=== PATIENT | male | born 1965 | race Caucasian/White ===

== ENCOUNTER 2018-07-18 19:32 | Inpatient (IN) | payer OTHER ==
--- NOTE | 2018-07-18 20:59 | ED ---
General Adult HPI - General Chief complaint: Recheck/Abnormal Lab/Rx Stated complaint: Abnormal lab, low hemoglobin Time Seen by Provider: 07/18/18 20:57 Source: patient Mode of arrival: ambulatory Limitations: no limitations - History of Present Illness Initial comments: Landon is a 52-year-old male who comes to the ED today after visiting his primary care physician yesterday for evaluation of fatigue and his heart pounding when doing any physical activity. Patient reports he's noticed over the past couple of weeks he's become progressively more fatigued. When attempting to clean up believes in his front yard he reports that he on multiple occasions had to stand against a tree to support himself [place] on a trashcan while trying to catch his breath, this is very atypical for him as he usually has no problem tending to all of his yardwork. Patient decided to see his primary care physician yesterday who commented on how pale he appeared. This morning the patient and his blood drawn and was called by his primary care physician to being notified that his hemoglobin was only 5.4. Patient has no history of anemia in the past. He does report that he has intermittent bright red blood per rectum. He has been seen by surgery in the past and had internal and external hemorrhoid surgeries. Patient reports he hasn't had any GI bleeding in the past one week. He states that on times he has a bowel movement and has bright red bleeding and has to sit on the toilet for a number of minutes while he continues to just have active bleeding from his rectum. - Related Data Home Medications Medication Instructions Recorded Confirmed No Known Home Medications 07/18/18 07/18/18 Allergies Allergy/AdvReac Type Severity Reaction Status Date / Time cephalexin [From Keflex] AdvReac Rash/Hives Verified 07/18/18 21:00 Review of Systems ROS Statement: Those systems with pertinent positive or pertinent negative responses have been documented in the HPI. ROS Other: All systems not noted in ROS Statement are negative. Past Medical History Past Medical History: GI Bleed (Hemorrhoid) History of Any Multi-Drug Resistant Organisms: None Reported Past Surgical History: Orthopedic Surgery Additional Past Surgical History / Comment(s): bilat knees, left shoulder, acl to right knee, hemorrhoid surgery, Past Psychological History: No Psychological Hx Reported Smoking Status: Never smoker Past Alcohol Use History: Occasional Past Drug Use History: None Reported General Exam - General Exam Comments Initial Comments: GENERAL: Patient appears very pale Patient is nontoxic and well-hydrated and is in no distress. HENT: Normocephalic, Atraumatic. Neck is soft and supple. No significant lymphadenopathy is noted. Oropharynx is clear. Moist mucous membranes. Neck has full range of motion without eliciting any pain. EYES: The sclera were anicteric and conjunctiva were pale pink and moist. Extraocular movements were intact and pupils were equal round and reactive to light. Eyelids were unremarkable. PULMONARY: Unlabored respirations. Good breath sounds bilaterally. No audible rales rhonchi or wheezing was noted. CARDIOVASCULAR: There is a regular rate and rhythm without any murmurs gallops or rubs. ABDOMEN: Soft and nontender with normal bowel sounds. Rectal exam with no stool in the rectal vault Palpable internal and visible external hemorrhoids, no active bleeding SKIN: Skin is clear with no lesions or rashes and otherwise unremarkable. NEUROLOGIC: Patient is alert and oriented x3. Cranial nerves II through XII are grossly intact. Motor and sensory are also intact. Normal speech, volume and content. Symmetrical smile. MUSCULOSKELETAL: Normal extremities with adequate strength and full range of motion. No lower extremity swelling or edema. No calf tenderness. LYMPHATICS: No significant lymphadenopathy is noted PSYCHIATRIC: Normal psychiatric evaluation. Limitations: no limitations Limitations: no limitations Course Vital Signs 07/18/18 07/18/18 07/18/18 20:05 22:41 22:50 Temperature 98.2 F 98.4 F 98.3 F Pulse Rate 99 79 84 Respiratory 18 18 19 Rate Blood Pressure 155/88 138/87 131/83 O2 Sat by Pulse 100 100 Oximetry 07/18/18 23:00 Temperature 98.1 F Pulse Rate 85 Respiratory 18 Rate Blood Pressure 137/86 O2 Sat by Pulse Oximetry EKG Findings - EKG Comments: EKG Findings:: EKG was obtained at 8:15 AM, rate of 77, rhythm is sinus, there is normal axis, normal intervals, KS 146, QRS 96, QTC 441. There is no acute ST elevations or depressions noted some acute ischemia or infarction. Medical Decision Making - Medical Decision Making The patient was seen and evaluated history was obtained from the patient Physical exam reveals a very pale-appearing male in no acute distress rectal exam with no stool in the rectal vault, however there is palpable internal and external hemorrhoids patient reports no bleeding for one week Labs reveal acute anemia with a hemoglobin of only 6 Patient with no opposition to transfusion, transfusion was ordered Patient care was discussed with patient's primary care physician Dr. Benitez who accepts the admission with a consult to patient's surgeon Dr. Price for evaluation of hemorrhoidal bleeding admission orders were placed - Lab Data Result diagrams: 07/18/18 20:25 07/18/18 20:25 Lab Results 07/18/18 07/18/18 07/18/18 Range/Units 20:25 20:25 20:25 WBC 5.4 (3.8-10.6) k/uL RBC 2.52 L (4.30-5.90) m/uL Hgb 6.0 L* (13.0-17.5) gm/dL Hct 20.3 L (39.0-53.0) % MCV 80.7 (80.0-100.0) fL MCH 23.7 L (25.0-35.0) pg MCHC 29.4 L (31.0-37.0) g/dL RDW 17.4 H (11.5-15.5) % Plt Count 423 (150-450) k/uL Neutrophils % (Manual) 69 % Lymphocytes % (Manual) 21 % Monocytes % (Manual) 8 % Eosinophils % (Manual) 2 % Neutrophils # (Manual) 3.73 (1.3-7.7) k/uL Lymphocytes # (Manual) 1.13 (1.0-4.8) k/uL Monocytes # (Manual) 0.43 (0-1.0) k/uL Eosinophils # (Manual) 0.11 (0-0.7) k/uL Nucleated RBCs 0 (0-0) /100 WBC Manual Slide Review Performed Large Platelets Present Polychromasia Present Hypochromasia Marked Poikilocytosis Marked Poikilocytosis (manual Present Anisocytosis Slight Microcytosis Slight Ovalocytes Present PT (9.0-12.0) sec INR (<1.2) APTT (22.0-30.0) sec Sodium 140 (137-145) mmol/L Potassium 3.9 (3.5-5.1) mmol/L Chloride 107 (98-107) mmol/L Carbon Dioxide 24 (22-30) mmol/L Anion Gap 9 mmol/L BUN 18 (9-20) mg/dL Creatinine 1.03 (0.66-1.25) mg/dL Est GFR (CKD-EPI)AfAm >90 (>60 ml/min/1.73 sqM) Est GFR (CKD-EPI)NonAf 83 (>60 ml/min/1.73 sqM) Glucose 118 H (74-99) mg/dL Calcium 9.4 (8.4-10.2) mg/dL Magnesium 2.1 (1.6-2.3) mg/dL Total Bilirubin 0.8 (0.2-1.3) mg/dL AST 25 (17-59) U/L ALT 24 (21-72) U/L Alkaline Phosphatase 46 (38-126) U/L Troponin I (0.000-0.034) ng/mL Total Protein 6.8 (6.3-8.2) g/dL Albumin 4.3 (3.5-5.0) g/dL Blood Type O Positive Blood Type Confirm Blood Type Recheck CABO Indicated Antibody Screen NEGATIVE Crossmatch See Detail Spec Expiration Date 07/21/2018232407/18/18 07/18/18 07/18/18 Range/Units 20:25 20:25 21:51 WBC (3.8-10.6) k/uL RBC (4.30-5.90) m/uL Hgb (13.0-17.5) gm/dL Hct (39.0-53.0) % MCV (80.0-100.0) fL MCH (25.0-35.0) pg MCHC (31.0-37.0) g/dL RDW (11.5-15.5) % Plt Count (150-450) k/uL Neutrophils % (Manual) % Lymphocytes % (Manual) % Monocytes % (Manual) % Eosinophils % (Manual) % Neutrophils # (Manual) (1.3-7.7) k/uL Lymphocytes # (Manual) (1.0-4.8) k/uL Monocytes # (Manual) (0-1.0) k/uL Eosinophils # (Manual) (0-0.7) k/uL Nucleated RBCs (0-0) /100 WBC Manual Slide Review Large Platelets Polychromasia Hypochromasia Poikilocytosis Poikilocytosis (manual Anisocytosis Microcytosis Ovalocytes PT 10.1 (9.0-12.0) sec INR 1.0 (<1.2) APTT 21.6 L (22.0-30.0) sec Sodium (137-145) mmol/L Potassium (3.5-5.1) mmol/L Chloride (98-107) mmol/L Carbon Dioxide (22-30) mmol/L Anion Gap mmol/L BUN (9-20) mg/dL Creatinine (0.66-1.25) mg/dL Est GFR (CKD-EPI)AfAm (>60 ml/min/1.73 sqM) Est GFR (CKD-EPI)NonAf (>60 ml/min/1.73 sqM) Glucose (74-99) mg/dL Calcium (8.4-10.2) mg/dL Magnesium (1.6-2.3) mg/dL Total Bilirubin (0.2-1.3) mg/dL AST (17-59) U/L ALT (21-72) U/L Alkaline Phosphatase (38-126) U/L Troponin I <0.012 (0.000-0.034) ng/mL Total Protein (6.3-8.2) g/dL Albumin (3.5-5.0) g/dL Blood Type Blood Type Confirm O Positive Blood Type Recheck Antibody Screen Crossmatch Spec Expiration Date Disposition Clinical Impression: Microcytic hypochromic anemia Disposition: ADMITTED IP TO THIS [facility] Condition: Stable Is patient prescribed a controlled substance at d/c from ED?: No Referrals: Noe Benitez MD [Primary Care Provider] - 1-2 days
[2018-07-18 21:18] LABS: Anisocytosis Slight; HCT 20.3 % (39.0-53.0); Hypochromasia Marked; MCH 23.7 pg (25.0-35.0); MCHC 29.4 g/dL (31.0-37.0); MCV 80.7 fL (80.0-100.0); Mean Platelet Volume 8.4; Microcytosis Slight; Platelet Count 423 k/uL (150-450); Poikilocytosis Marked; RBC 2.52 m/uL (4.30-5.90); RDW 17.4 % (11.5-15.5); WBC 5.4 k/uL (3.8-10.6)
[2018-07-18 21:30] LABS: ALT 24 U/L (21-72); AST 25 U/L (17-59); Albumin 4.3 g/dL (3.5-5.0); Alkaline Phosphatase 46 U/L (38-126); Anion Gap 9 mmol/L; Blood Urea Nitrogen 18 mg/dL (9-20); Calcium 9.4 mg/dL (8.4-10.2); Carbon Dioxide 24 mmol/L (22-30); Chloride 107 mmol/L (98-107); Glucose 118 mg/dL (74-99); Magnesium 2.1 mg/dL (1.6-2.3); Potassium 3.9 mmol/L (3.5-5.1); Sodium 140 mmol/L (137-145); Total Bilirubin 0.8 mg/dL (0.2-1.3); Total Protein 6.8 g/dL (6.3-8.2)
[2018-07-18 21:33] LABS: Prothrombin Time 10.1 sec (9.0-12.0)
[2018-07-18 21:42] LABS: Partial Thromboplastin Time 21.6 sec (22.0-30.0)
[2018-07-18 21:46] LABS: Eosinophils # (M) 0.11 k/uL (0-0.7); Large Platelets Present; Lymphocytes # (M) 1.13 k/uL (1.0-4.8); Monocytes # (M) 0.43 k/uL (0-1.0); Neutrophils # (M) 3.73 k/uL (1.3-7.7); Neutrophils % (M) 69 %; Nucleated Red Blood Cells 0 /100 WBC (0-0); Ovalocytes Present; Poikilocytosis (M) Present; Polychromasia Present; Total Cells Counted 100
--- NOTE | 2018-07-18 22:33 | XR ---
EXAMINATION: XR chest 2V DATE AND TIME: 07/18/2018 9:25 PM CLINICAL INDICATION: pain TECHNIQUE: PA and lateral COMPARISON: None. FINDINGS: The lungs are clear. The pleural spaces are negative. The cardiac silhouette is not enlarged. The remainder of the mediastinal silhouette is unremarkable. The skeletal structures and soft tissues are negative for acute findings. IMPRESSION: NO ACUTE PROCESS.
[2018-07-18] MEDS ORDERED: ACETAMINOPHEN TAB 325 MG TAB PO PRN (22:35)
[2018-07-18] MEDS ORDERED: IBUPROFEN 400 MG TAB PO PRN (22:35)
[2018-07-18] MEDS ORDERED: NALOXONE 0.4 MG/ML 1 ML VIAL IV PRN (22:35)
[2018-07-19 00:17] VITALS: BMI 29.5
[2018-07-19 08:07] LABS: Anisocytosis Slight; Basophils % (A) 0 %; Eosinophils # (A) 0.1 k/uL (0-0.7); Eosinophils % (A) 2 %; HCT 21.6 % (39.0-53.0); Hypochromasia Marked; Lymphocytes % (A) 21 %; MCH 24.6 pg (25.0-35.0); MCHC 31.3 g/dL (31.0-37.0); MCV 78.5 fL (80.0-100.0); Mean Platelet Volume 7.6; Microcytosis Slight; Monocytes # (A) 0.5 k/uL (0-1.0); Monocytes % (A) 10 %; Neutrophils # (A) 3.1 k/uL (1.3-7.7); Neutrophils % (A) 64 %; Platelet Count 324 k/uL (150-450); Poikilocytosis Marked; RBC 2.76 m/uL (4.30-5.90); RDW 16.8 % (11.5-15.5); WBC 4.8 k/uL (3.8-10.6)
[2018-07-19 08:29] LABS: HGB 6.8 gm/dL (13.0-17.5)
[2018-07-19 09:34] LABS: Anisocytosis Slight; HCT 21.8 % (39.0-53.0); Hypochromasia Marked; MCH 24.3 pg (25.0-35.0); MCHC 30.9 g/dL (31.0-37.0); MCV 78.8 fL (80.0-100.0); Mean Platelet Volume 7.5; Microcytosis Slight; Platelet Count 320 k/uL (150-450); Poikilocytosis Marked; RBC 2.77 m/uL (4.30-5.90); RDW 16.8 % (11.5-15.5); WBC 5.1 k/uL (3.8-10.6)
[2018-07-19 09:42] LABS: HGB 6.7 gm/dL (13.0-17.5)
[2018-07-19] MEDS: PANTOPRAZOLE 40 MG/10 ML VIAL IVP SCH ×2 (10:06→21:47)
[2018-07-19] MEDS: SODIUM CHLORIDE 0.9% 1,000 ML IV SCH ×2 (10:07→17:38)
--- NOTE | 2018-07-19 10:27 | P.HPIM ---
History of Present Illness H&P Date: 07/19/18 Chief Complaint: anemia, sent by pcp 52-year-old male with was evaluated yesterday by his primary care physician with a chief complaint of fatigue and shortness of breath. The patient states he has noticed over the past month he has become dyspneic with exertion and requires frequent rest breaks. He also reports intermittent bright red blood per rectum over the past month. He denies any bleeding for the past week however. Blood work was completed yesterday at his primary care office and his hemoglobin was found to be 5.4. He was sent to the emergency room for further evaluation. Repeat hemoglobin in the emergency room was 6.0. The patient received 2 units of RBC transfusion. Repeat hemoglobin this morning is 6.8. Patient denies shortness of breath at this time. Denies chest pain or pressure. Denies nausea or vomiting. Denies abdominal pain. Denies blood per rectum at this time. Vital signs have been stable. The patient does report a history of hemorrhoids and states he underwent hemorrhoid banding and colonoscopy last year with Dr. Mujica. Chest x-ray completed in the emergency room was negative for an acute process. Laboratory data upon admission reveals white count 5.4. Hemoglobin 6.0. Platelet count 423. Sodium 140. Potassium 3.9. BUN 18. Creatinine 1.03. Glucose 118. Troponin negative 1. The patient was admitted to the hospital under the care of Dr. Benitez. Consultations were placed to general surgery, Dr. Mujica. REVIEW OF SYSTEMS: Those systems with pertinent positive or pertinent negative responses have been documented in the HPI PHYSICAL EXAM: GENERAL: This is a 52-year-old male in no apparent distress at the time of examination. Pleasant and cooperative. HEENT: Head is atraumatic, normocephalic. Pupils are equal, round, and reactive to light. Sclerae anicteric. Conjunctivae are clear. Mucus membranes of the mouth are moist. Neck is supple. RESPIRATORY: Clear to auscultation. No wheezes, rales, or rhonchi. No use of accessory muscles. Patient maintaining oxygen saturation greater than 92%. No chest wall tenderness is noted on palpation or with deep breathing. CARDIOVASCULAR: Regular rate and rhythm. S1 and S2 noted. No systolic or diastolic murmur auscultated. No JVD noted. No S3 or S4 noted. GASTROINTESTINAL: No distention noted. Abdomen soft and round. Normal active bowel sounds auscultated x 4 quadrants. No pain or tenderness noted upon palpation. INTEGUMENTARY: Generalized pallor. No cyanosis. No jaundice. No rashes noted. No cellulitis noted. EXTREMITIES: 2+ peripheral pulses. No evidence of peripheral edema. No calf tenderness noted. NEUROLOGIC: Cranial nerves II-XII intact. PSYCHIATRIC: Awake, alert, and oriented X 3. Appropriate affect. Intact judgement and insight. ASSESSMENT: Acute blood loss anemia, suspected lower GI bleed, may be secondary to hemorrhoids Reported intermittent bright red blood per rectum x 1 month Shortness of breath and fatigue secondary to anemia History of hemorrhoid banding 2016 PLAN: Dr. Mujica on consult. Await recommendations and input Protonix 40mg IV BID 0.9NS at 100cc/hr Transfuse 1 additional unit RBC CBC q6 hours x 4 Home meds as appropriate Monitor labs GI prophylaxis: Protonix 40 mg IV BID DVT prophylaxis: SCDs to bilateral LE Monitor vital signs and address as appropriate Discharge planning: Patient to return home when stable Further recommendations pending patient's course Nurse practitioner note has been reviewed by physician. Signing provider agrees with the documented findings, assessment, and plan of care. Past Medical History Past Medical History: GI Bleed History of Any Multi-Drug Resistant Organisms: None Reported Past Surgical History: Orthopedic Surgery Additional Past Surgical History / Comment(s): bilat knees, left shoulder, acl to right knee, hemorrhoid surgery, Past Psychological History: No Psychological Hx Reported Smoking Status: Never smoker Past Alcohol Use History: Occasional Past Drug Use History: None Reported Medications and Allergies Home Medications Medication Instructions Recorded Confirmed Type No Known Home Medications 07/18/18 07/18/18 History Allergies Allergy/AdvReac Type Severity Reaction Status Date / Time cephalexin [From Keflex] AdvReac Rash/Hives Verified 07/18/18 21:00 Physical Exam Vitals: Vital Signs Temp Pulse Resp BP Pulse Ox 07/19/18 07:00 98.5 F 16 100 07/19/18 02:32 98.6 F 81 16 120/69 07/19/18 01:43 98.5 F 81 16 116/70 07/19/18 01:13 98.5 F 78 16 118/69 07/19/18 01:03 98.0 F 78 16 116/60 07/19/18 00:59 98.0 F 78 16 116/60 07/19/18 00:23 98.7 F 79 16 141/92 07/18/18 23:30 98.3 F 85 19 137/78 07/18/18 23:00 98.1 F 85 18 137/86 07/18/18 22:50 98.3 F 84 19 131/83 07/18/18 22:41 98.4 F 79 18 138/87 100 07/18/18 20:05 98.2 F 99 18 155/88 100 Intake and Output 07/18/18 07/19/18 07/19/18 22:59 06:59 14:59 Intake Total 0 620 Balance 0 620 Intake: Blood Product 0 620 Rc Pheresis As-3 Unit 310 [id number] Rc Pheresis As3 Unit 0 310 [id number] Other: # Voids 1 Weight 93.44 kg 93.44 kg Results CBC & Chem 7: 07/19/18 08:42 07/18/18 20:25 Labs: Abnormal Lab Results - Last 24 Hours (Table) 07/18/18 07/18/18 07/18/18 Range/Units 20:25 20:25 20:25 RBC 2.52 L (4.30-5.90) m/uL Hgb 6.0 L* (13.0-17.5) gm/dL Hct 20.3 L (39.0-53.0) % MCV (80.0-100.0) fL MCH 23.7 L (25.0-35.0) pg MCHC 29.4 L (31.0-37.0) g/dL RDW 17.4 H (11.5-15.5) % APTT (22.0-30.0) sec Glucose 118 H (74-99) mg/dL Crossmatch See Detail 07/18/18 07/19/18 07/19/18 Range/Units 20:25 07:24 08:42 RBC 2.76 L 2.77 L (4.30-5.90) m/uL Hgb 6.8 L* 6.7 L* (13.0-17.5) gm/dL Hct 21.6 L 21.8 L (39.0-53.0) % MCV 78.5 L 78.8 L (80.0-100.0) fL MCH 24.6 L 24.3 L (25.0-35.0) pg MCHC 30.9 L (31.0-37.0) g/dL RDW 16.8 H 16.8 H (11.5-15.5) % APTT 21.6 L (22.0-30.0) sec Glucose (74-99) mg/dL Crossmatch Thrombosis Risk Factor Assmnt - Choose All That Apply Any of the Below Risk Factors Present?: No Other Risk Factors: No Other congenital or acquired thrombophilia - If yes, enter type in comment: No Thrombosis Risk Factor Assessment Level: Very Low Risk
[2018-07-19] MEDS ORDERED: PEG 3350-NA SULF,BICARB,CL/KCL 4,000 ML BOTTLE PO ONE (13:03)
--- NOTE | 2018-07-19 13:03 | P.GSCN ---
History of Present Illness Consult date: 07/19/18 Reason for Consult: Anemia, history of hemorrhoids History of present illness: Patient admitted to the hospital because of hemoglobin of 5.4. Patient was complaining of shortness of breath and racing heart rate. Patient has a history of known hemorrhoids with intermittent bleeding. Bleeding actually hasn 't been that bad recently. He was only recently seen in the office to discuss these issues. Patient's last colonoscopy about 1 year ago. No melanotic stools. No epigastric abdominal pain. Hemoglobin increasing with the blood transfusions. Review of Systems The patient denies any acute changes in vision or hearing, no dysphagia or odynophagia, no chest pain, no dysuria or hematuria, no headache, no runny nose , no melena, no unexplained weight loss Past Medical History Past Medical History: GI Bleed History of Any Multi-Drug Resistant Organisms: None Reported Past Surgical History: Orthopedic Surgery Additional Past Surgical History / Comment(s): bilat knees, left shoulder, acl to right knee, hemorrhoid surgery, Past Psychological History: No Psychological Hx Reported Smoking Status: Never smoker Past Alcohol Use History: Occasional Past Drug Use History: None Reported Medications and Allergies Home Medications Medication Instructions Recorded Confirmed Type No Known Home Medications 07/18/18 07/18/18 History Allergies Allergy/AdvReac Type Severity Reaction Status Date / Time cephalexin [From Keflex] AdvReac Rash/Hives Verified 07/18/18 21:00 Surgical - Exam Vital Signs Temp Pulse Resp BP Pulse Ox 98.2 F 99 18 155/88 100 07/18/18 20:05 07/18/18 20:05 07/18/18 20:05 07/18/18 20:05 07/18/18 20:05 Physical exam: General: Well-developed, well-nourished HEENT: Normocephalic, sclerae nonicteric Abdomen: Nontender, nondistended Extremities: No edema Neuro: Alert and oriented Results - Labs 07/19/18 08:42 07/18/18 20:25 Abnormal Lab Results - Last 24 Hours (Table) 07/18/18 07/18/18 07/18/18 Range/Units 20:25 20:25 20:25 RBC 2.52 L (4.30-5.90) m/uL Hgb 6.0 L* (13.0-17.5) gm/dL Hct 20.3 L (39.0-53.0) % MCV (80.0-100.0) fL MCH 23.7 L (25.0-35.0) pg MCHC 29.4 L (31.0-37.0) g/dL RDW 17.4 H (11.5-15.5) % APTT (22.0-30.0) sec Glucose 118 H (74-99) mg/dL Crossmatch See Detail 07/18/18 07/19/18 07/19/18 Range/Units 20:25 07:24 08:42 RBC 2.76 L 2.77 L (4.30-5.90) m/uL Hgb 6.8 L* 6.7 L* (13.0-17.5) gm/dL Hct 21.6 L 21.8 L (39.0-53.0) % MCV 78.5 L 78.8 L (80.0-100.0) fL MCH 24.6 L 24.3 L (25.0-35.0) pg MCHC 30.9 L (31.0-37.0) g/dL RDW 16.8 H 16.8 H (11.5-15.5) % APTT 21.6 L (22.0-30.0) sec Glucose (74-99) mg/dL Crossmatch Diabetes panel 07/18/18 Range/Units 20:25 Sodium 140 (137-145) mmol/L Potassium 3.9 (3.5-5.1) mmol/L Chloride 107 (98-107) mmol/L Carbon Dioxide 24 (22-30) mmol/L BUN 18 (9-20) mg/dL Creatinine 1.03 (0.66-1.25) mg/dL Glucose 118 H (74-99) mg/dL Calcium 9.4 (8.4-10.2) mg/dL AST 25 (17-59) U/L ALT 24 (21-72) U/L Alkaline Phosphatase 46 (38-126) U/L Total Protein 6.8 (6.3-8.2) g/dL Albumin 4.3 (3.5-5.0) g/dL Calcium panel 07/18/18 Range/Units 20:25 Calcium 9.4 (8.4-10.2) mg/dL Albumin 4.3 (3.5-5.0) g/dL Pituitary panel 07/18/18 Range/Units 20:25 Sodium 140 (137-145) mmol/L Potassium 3.9 (3.5-5.1) mmol/L Chloride 107 (98-107) mmol/L Carbon Dioxide 24 (22-30) mmol/L BUN 18 (9-20) mg/dL Creatinine 1.03 (0.66-1.25) mg/dL Glucose 118 H (74-99) mg/dL Calcium 9.4 (8.4-10.2) mg/dL Adrenal panel 07/18/18 Range/Units 20:25 Sodium 140 (137-145) mmol/L Potassium 3.9 (3.5-5.1) mmol/L Chloride 107 (98-107) mmol/L Carbon Dioxide 24 (22-30) mmol/L BUN 18 (9-20) mg/dL Creatinine 1.03 (0.66-1.25) mg/dL Glucose 118 H (74-99) mg/dL Calcium 9.4 (8.4-10.2) mg/dL Total Bilirubin 0.8 (0.2-1.3) mg/dL AST 25 (17-59) U/L ALT 24 (21-72) U/L Alkaline Phosphatase 46 (38-126) U/L Total Protein 6.8 (6.3-8.2) g/dL Albumin 4.3 (3.5-5.0) g/dL Assessment and Plan (1) Microcytic hypochromic anemia Narrative/Plan: Will proceed with upper and lower endoscopy tomorrow. Consider hematology consultation. Follow hemoglobin. Current Visit: Yes Status: Acute Code(s): D50.9 - IRON DEFICIENCY ANEMIA, UNSPECIFIED SNOMED Code(s): 32754446
[2018-07-19 18:08] LABS: HCT 25.9 % (39.0-53.0); HGB 7.9 gm/dL (13.0-17.5); Hypochromasia Marked; MCH 24.6 pg (25.0-35.0); MCHC 30.6 g/dL (31.0-37.0); MCV 80.3 fL (80.0-100.0); Mean Platelet Volume 7.3; Platelet Count 334 k/uL (150-450); Poikilocytosis Marked; RBC 3.23 m/uL (4.30-5.90); WBC 5.5 k/uL (3.8-10.6)
[2018-07-19 18:49] LABS: Reticulocyte % 2.1 % (0.5-2.0)
[2018-07-19 20:44] LABS: Erythrocyte Sedimentation Rate 12 mm/hr (0-15)
[2018-07-19 23:23] LABS: Anisocytosis Slight; HCT 24.7 % (39.0-53.0); HGB 7.7 gm/dL (13.0-17.5); Hypochromasia Marked; MCH 25.2 pg (25.0-35.0); MCHC 31.3 g/dL (31.0-37.0); MCV 80.3 fL (80.0-100.0); Mean Platelet Volume 7.4; Platelet Count 338 k/uL (150-450); Poikilocytosis Marked; RBC 3.08 m/uL (4.30-5.90); RDW 16.7 % (11.5-15.5); WBC 6.4 k/uL (3.8-10.6)
[2018-07-20 03:07] LABS: Folate, Serum 17.2 ng/mL; Iron Saturation 2.75 (15.00-50.00); Protein, Total 5.7 g/dL (6.2-8.2)
[2018-07-20] MEDS ORDERED: LIDOCAINE 1% 20 ML VIAL (10MG/ML) FOR IV START INTRADERMA PRN (06:16)
[2018-07-20] MEDS ORDERED: LACTATED RINGERS 1,000 ML IV SCH (06:16)
[2018-07-20] MEDS ORDERED: ALPRAZolam 0.5 MG TAB PO PRN (06:16)
[2018-07-20] MEDS ORDERED: DEXAMETHASONE SOD PHOSPHATE 10 MG/ML 1 ML VIAL IV ONE (06:16)
[2018-07-20] MEDS ORDERED: HYDROmorphone 1 MG/ML 1 ML SYRINGE IVP PRN (06:16)
[2018-07-20] MEDS ORDERED: ONDANSETRON 4 MG/2 ML VIAL IVP ONE (06:16)
[2018-07-20] MEDS ORDERED: SCOPOLAMINE 1.5MG/72HR PATCH TRANSDERM ONE (06:16)
--- NOTE | 2018-07-20 07:42 | P.CONS ---
History of Present Illness - Reason for Consult Consult date: 07/19/18 Anemia Requesting physician: Elías Mujica Review of Systems A 14 point review assessed and completed and all neg except HPI Past Medical History Past Medical History: GI Bleed History of Any Multi-Drug Resistant Organisms: None Reported Past Surgical History: Orthopedic Surgery Additional Past Surgical History / Comment(s): bilat knees, left shoulder, acl to right knee, hemorrhoid surgery, Past Psychological History: No Psychological Hx Reported Smoking Status: Never smoker Past Alcohol Use History: Occasional Past Drug Use History: None Reported - Past Family History Father Family Medical History: Unable to Obtain Additional Family Medical History / Comment(s): Pt was adopted Medications and Allergies Home Medications Medication Instructions Recorded Confirmed Type No Known Home Medications 07/18/18 07/18/18 History Allergies Allergy/AdvReac Type Severity Reaction Status Date / Time cephalexin [From Keflex] AdvReac Rash/Hives Verified 07/18/18 21:00 Physical Exam Vitals: Vital Signs Temp Pulse Pulse Resp BP BP Pulse Ox 07/19/18 14:49 98.3 F 75 18 122/71 100 07/19/18 14:33 98.9 F 78 16 117/71 100 07/19/18 13:06 98.7 F 75 16 128/85 100 07/19/18 12:36 98.5 F 82 16 133/80 100 07/19/18 12:26 97.9 F 76 16 131/74 07/19/18 07:00 98.5 F 16 100 07/19/18 02:32 98.6 F 81 16 120/69 07/19/18 01:43 98.5 F 81 16 116/70 07/19/18 01:13 98.5 F 78 16 118/69 07/19/18 01:03 98.0 F 78 16 116/60 07/19/18 00:59 98.0 F 78 16 116/60 07/19/18 00:23 98.7 F 79 16 141/92 07/18/18 23:30 98.3 F 85 19 137/78 07/18/18 23:00 98.1 F 85 18 137/86 07/18/18 22:50 98.3 F 84 19 131/83 07/18/18 22:41 98.4 F 79 18 138/87 100 07/18/18 20:05 98.2 F 99 18 155/88 100 Intake and Output 07/19/18 07/19/18 07/19/18 06:59 14:59 22:59 Intake Total 620 0 Balance 620 0 Intake: Blood Product 620 0 Rc Cpda-1 Unit 0 [id number] Rc Pheresis As-3 Unit 310 [id number] Rc Pheresis As3 Unit 310 [id number] Other: # Voids 1 2 Weight 93.44 kg General: Well-developed, well-nourished NAD, Alert and Oriented x3 HEENT: Normocephalic, sclerae nonicteric Neck Supple, Trachea Midline No Cervical Lymphadenopathy Lungs: CTA Bilateral, No increased Respiratory Effort Abdomen: Nontender, nondistended, Bowel Sounds present, No palpable Organomegaly Extremities: No edema, No apparent Rash Neuro: Alert and oriented, no unilateral deficit or focal dificits noted Calm and cooperative. Results CBC & Chem 7: 07/20/18 08:25 07/18/18 20:25 Labs: Abnormal Lab Results - Last 24 Hours (Table) 07/18/18 07/18/18 07/18/18 Range/Units 20:25 20:25 20:25 RBC 2.52 L (4.30-5.90) m/uL Hgb 6.0 L* (13.0-17.5) gm/dL Hct 20.3 L (39.0-53.0) % MCV (80.0-100.0) fL MCH 23.7 L (25.0-35.0) pg MCHC 29.4 L (31.0-37.0) g/dL RDW 17.4 H (11.5-15.5) % APTT (22.0-30.0) sec Glucose 118 H (74-99) mg/dL Crossmatch See Detail 07/18/18 07/19/18 07/19/18 Range/Units 20:25 07:24 08:42 RBC 2.76 L 2.77 L (4.30-5.90) m/uL Hgb 6.8 L* 6.7 L* (13.0-17.5) gm/dL Hct 21.6 L 21.8 L (39.0-53.0) % MCV 78.5 L 78.8 L (80.0-100.0) fL MCH 24.6 L 24.3 L (25.0-35.0) pg MCHC 30.9 L (31.0-37.0) g/dL RDW 16.8 H 16.8 H (11.5-15.5) % APTT 21.6 L (22.0-30.0) sec Glucose (74-99) mg/dL Crossmatch Assessment and Plan Plan: Assessment and Recommendations: 1. Acute Blood Bloss Anemia: - Supportive Transfusions, keep greater than 7 - Iron Studies and anemia work-up in progress - Colonoscopy and EGD today per Gen Surg.
[2018-07-20] MEDS: SODIUM CHLORIDE 0.9% 1,000 ML IV SCH (08:07)
[2018-07-20 08:36] VITALS: RESP 15
[2018-07-20 08:49] LABS: Anisocytosis Slight; HCT 24.9 % (39.0-53.0); HGB 7.6 gm/dL (13.0-17.5); Hypochromasia Marked; MCH 24.3 pg (25.0-35.0); MCHC 30.4 g/dL (31.0-37.0); MCV 79.9 fL (80.0-100.0); Mean Platelet Volume 7.5; Platelet Count 318 k/uL (150-450); Poikilocytosis Marked; RBC 3.12 m/uL (4.30-5.90); RDW 16.2 % (11.5-15.5); WBC 5.6 k/uL (3.8-10.6)
[2018-07-20] MEDS: PANTOPRAZOLE 40 MG/10 ML VIAL IVP SCH ×2 (08:53→16:58)
--- NOTE | 2018-07-20 11:41 | P.PN ---
Subjective Progress Note Date: 07/20/18 52-year-old male with was evaluated yesterday by his primary care physician with a chief complaint of fatigue and shortness of breath. The patient states he has noticed over the past month he has become dyspneic with exertion and requires frequent rest breaks. He also reports intermittent bright red blood per rectum over the past month. He denies any bleeding for the past week however. Blood work was completed yesterday at his primary care office and his hemoglobin was found to be 5.4. He was sent to the emergency room for further evaluation. Repeat hemoglobin in the emergency room was 6.0. The patient received 2 units of RBC transfusion. Repeat hemoglobin this morning is 6.8. Patient denies shortness of breath at this time. Denies chest pain or pressure. Denies nausea or vomiting. Denies abdominal pain. Denies blood per rectum at this time. Vital signs have been stable. The patient does report a history of hemorrhoids and states he underwent hemorrhoid banding and colonoscopy last year with Dr. Mujica. Chest x-ray completed in the emergency room was negative for an acute process. Laboratory data upon admission reveals white count 5.4. Hemoglobin 6.0. Platelet count 423. Sodium 140. Potassium 3.9. BUN 18. Creatinine 1.03. Glucose 118. Troponin negative 1. The patient was admitted to the hospital under the care of Dr. Benitez. Consultations were placed to general surgery, Dr. Mujica. 07/20/2018 Patient seen and examined at the bedside. Patient states he is feeling well this morning. Denies shortness of breath. Denies chest pain. He is nothing by mouth. He is scheduled for EGD and colonoscopy today. Patient reports no rectal bleeding. He received 1 unit RBC transfusion yesterday. Most recent hemoglobin 7.6. PHYSICAL EXAM: GENERAL: This is a 52-year-old male in no apparent distress at the time of examination. Pleasant and cooperative. HEENT: Head is atraumatic, normocephalic. Pupils are equal, round, and reactive to light. Sclerae anicteric. Conjunctivae are clear. Mucus membranes of the mouth are moist. Neck is supple. RESPIRATORY: Clear to auscultation. No wheezes, rales, or rhonchi. No use of accessory muscles. Patient maintaining oxygen saturation greater than 92%. No chest wall tenderness is noted on palpation or with deep breathing. CARDIOVASCULAR: Regular rate and rhythm. S1 and S2 noted. No systolic or diastolic murmur auscultated. No JVD noted. No S3 or S4 noted. GASTROINTESTINAL: No distention noted. Abdomen soft and round. Normal active bowel sounds auscultated x 4 quadrants. No pain or tenderness noted upon palpation. INTEGUMENTARY: Generalized pallor. No cyanosis. No jaundice. No rashes noted. No cellulitis noted. EXTREMITIES: 2+ peripheral pulses. No evidence of peripheral edema. No calf tenderness noted. NEUROLOGIC: Cranial nerves II-XII intact. PSYCHIATRIC: Awake, alert, and oriented X 3. Appropriate affect. Intact judgement and insight. ASSESSMENT: Acute blood loss anemia, suspected lower GI bleed, may be secondary to hemorrhoids Reported intermittent bright red blood per rectum x 1 month Shortness of breath and fatigue secondary to anemia History of hemorrhoid banding 2016 PLAN: Dr. Mujica on consult. appreciate recommendations and input Patient scheduled for EGD and colonoscopy today. Await results Continue to monitor hemoglobin Hematology consulted. Appreciate recognitions and input Protonix 40mg IV BID Home meds as appropriate Monitor labs GI prophylaxis: Protonix 40 mg IV BID DVT prophylaxis: SCDs to bilateral LE Monitor vital signs and address as appropriate Discharge planning: Patient to return home when stable Further recommendations pending patient's course Nurse practitioner note has been reviewed by physician. Signing provider agrees with the documented findings, assessment, and plan of care. Objective - Vital Signs Vital signs: Vital Signs Temp 98.2 F 07/20/18 08:00 Pulse 77 07/20/18 08:00 Resp 15 07/20/18 08:00 BP 116/69 07/20/18 08:00 Pulse Ox 98 07/20/18 08:00 Intake & Output 07/19/18 07/20/18 07/20/18 18:59 06:59 18:59 Intake Total 0 2660 Balance 0 2660 Intake: Intake, IV Titration 800 Amount Sodium Chloride 0.9% 1, 800 000 ml @ 100 mls/hr IV . Q10H ADELITA Rx#:[id number] Oral 1860 Blood Product 0 Rc Cpda-1 Unit 0 [id number] Other: Voiding Method Toilet # Voids 2 1 # Bowel Movements 3 - Labs CBC & Chem 7: 07/20/18 08:25 07/18/18 20:25 Labs: Abnormal Lab Results - Last 24 Hours (Table) 07/18/18 07/19/18 07/19/18 Range/Units 20:25 17:17 17:17 RBC 3.23 L (4.30-5.90) m/uL Hgb 7.9 L (13.0-17.5) gm/dL Hct 25.9 L (39.0-53.0) % MCV (80.0-100.0) fL MCH 24.6 L (25.0-35.0) pg MCHC 30.6 L (31.0-37.0) g/dL RDW 16.0 H (11.5-15.5) % Retic Count 2.1 H (0.5-2.0) % Iron (65-175) ug/dL Iron Saturation (15.00-50.00) Total Protein (PEP) (6.2-8.2) g/dL Crossmatch See Detail 07/19/18 07/19/18 07/20/18 Range/Units 17:17 22:55 08:25 RBC 3.08 L 3.12 L (4.30-5.90) m/uL Hgb 7.7 L 7.6 L (13.0-17.5) gm/dL Hct 24.7 L 24.9 L (39.0-53.0) % MCV 79.9 L (80.0-100.0) fL MCH 24.3 L (25.0-35.0) pg MCHC 30.4 L (31.0-37.0) g/dL RDW 16.7 H 16.2 H (11.5-15.5) % Retic Count (0.5-2.0) % Iron 12 L (65-175) ug/dL Iron Saturation 2.75 L (15.00-50.00) Total Protein (PEP) 5.7 L (6.2-8.2) g/dL Crossmatch
[2018-07-20] MEDS ORDERED: LACTATED RINGERS 1,000 ML IV ONE (12:58)
--- NOTE | 2018-07-20 13:28 | P.PCN ---
Date of Procedure: 07/20/18 Procedure(s) Performed: PREOPERATIVE DIAGNOSIS: Anemia, rectal bleeding POSTOPERATIVE DIAGNOSIS: Straight, hiatal hernia, Carter's esophagus, distal esophagitis, hemorrhoids PROCEDURE: 1. EGD with biopsy 2. Colonoscopy ANESTHESIA: MAC SURGEON: Elías Mujica M.D. SPECIMENS: Antrum, distal esophagus ENDOSCOPIC PROCEDURE: The patient was on the endoscopy table in the left decubitus position. The Olympus gastroscope was inserted into the oropharynx and passed under direct visualization to the region of the third portion of the duodenum. From that point the scope was slowly withdrawn inspecting all surfaces carefully. There were no neoplastic inflammatory or polypoid lesions throughout the duodenum. The pylorus was widely patent. The stomach was carefully inspected. There was gastritis present. A biopsy of the antrum took place to rule out H. pylori. Retroflexion revealed a small to moderate sized hiatal hernia. The GE junction was present 2 cm above the diaphragmatic hiatus. At the distal esophagus there is known to be changes consistent with Carter's esophagus. This measured 1.5 cm in length. Most of this was free of significant inflammation however there was mild distal esophagitis also associated with the Carter's esophagus. Biopsies were taken of the distal esophagus. The length of the inflammatory changes was again approximate 1.5 cm in length. The mid and proximal esophagus appeared normal. The patient was kept on the endoscopy table in the left decubitus position. The Olympus colonoscope was inserted into the anus and passed under direct visualization to the base of the cecum. The appendiceal orifice was visualized. From that point the scope was slowly withdrawn inspecting all surfaces carefully. There were no neoplastic inflammatory or polypoid lesions throughout the cecum, ascending, transverse, descending, sigmoid and rectum. There was no visible diverticulosis noted. Digital rectal examination revealed small internal and external hemorrhoids without evidence of recent or active bleeding. The patient was taken to the recovery room in stable condition per anesthesia guidelines. RECOMMENDATIONS: Await biopsy results. Continue antiacids. Continue workup of iron deficiency and anemia.
[2018-07-20 13:48] LABS: Albumin 3.55 g/dL (3.80-4.90)
[2018-07-20 15:14] VITALS: BP 147/74; PULSE 73; TEMP 97.9
--- NOTE | 2018-07-20 16:23 | P.DS ---
Providers Date of admission: 07/18/18 22:36 Expected date of discharge: 07/20/18 Attending physician: Noe Benitez Consults: 07/18/18 22:37 Consult Physician Urgent Consulting Provider: Elías Mujica Consult Reason/Comments: hemorrhoid bleeding - established patient Do you want consulting provider notified?: Yes, Notify in am 07/19/18 13:13 Consult Physician Routine Consulting Provider: Cristi Slaughter Consult Reason/Comments: anemia Do you want consulting provider notified?: Yes Primary care physician: Noe Benitez - Discharge Diagnosis(es) (1) Blood loss anemia Current Visit: Yes Status: Acute (2) Fatigue associated with anemia Current Visit: Yes Status: Acute (3) Dyspnea on exertion Current Visit: Yes Status: Acute (4) Microcytic hypochromic anemia Current Visit: Yes Status: Acute Hospital Course: -year-old male with was evaluated yesterday by his primary care physician with a chief complaint of fatigue and shortness of breath. The patient states he has noticed over the past month he has become dyspneic with exertion and requires frequent rest breaks. He also reports intermittent bright red blood per rectum over the past month. He denies any bleeding for the past week however. Blood work was completed yesterday at his primary care office and his hemoglobin was found to be 5.4. He was sent to the emergency room for further evaluation. Repeat hemoglobin in the emergency room was 6.0. The patient received 2 units of RBC transfusion. Repeat hemoglobin this morning is 6.8. Patient denies shortness of breath at this time. Denies chest pain or pressure. Denies nausea or vomiting. Denies abdominal pain. Denies blood per rectum at this time. Vital signs have been stable. The patient does report a history of hemorrhoids and states he underwent hemorrhoid banding and colonoscopy last year with Dr. Mujica. Chest x-ray completed in the emergency room was negative for an acute process. Laboratory data upon admission reveals white count 5.4. Hemoglobin 6.0. Platelet count 423. Sodium 140. Potassium 3.9. BUN 18. Creatinine 1.03. Glucose 118. Troponin negative 1. The patient was admitted to the hospital under the care of Dr. Benitez. Consultations were placed to general surgery, Dr. Mujica. 07/20/2018 Patient seen and examined at the bedside. Patient states he is feeling well this morning. Denies shortness of breath. Denies chest pain. He is nothing by mouth. He is scheduled for EGD and colonoscopy today. Patient reports no rectal bleeding. He received 1 unit RBC transfusion yesterday. Most recent hemoglobin 7.6. adendum 07/20/2018 Patient cleared By general surgery after no significant findings. He will f/u in the office in 2-3 days Patient Condition at Discharge: Stable Plan - Discharge Summary Discharge Rx Participant: No New Discharge Prescriptions: Continue No Known Home Medications Discharge Medication List No Known Home Medications 07/18/18 [History] Follow up Appointment(s)/Referral(s): Noe Benitez MD [Primary Care Provider] - 1-2 days Discharge Disposition: HOME SELF-CARE
--- NOTE | 2018-07-20 17:04 | P.PN ---
Subjective Progress Note Date: 07/20/18 Principal diagnosis: Anemia - Blood Loss Planning on Scope EGD and Colonoscopy today. Objective - Vital Signs Vital signs: Vital Signs Temp 98.2 F 07/20/18 08:00 Pulse 77 07/20/18 08:00 Resp 15 07/20/18 08:00 BP 116/69 07/20/18 08:00 Pulse Ox 98 07/20/18 08:00 Intake & Output 07/19/18 07/20/18 07/20/18 18:59 06:59 18:59 Intake Total 0 2660 Balance 0 2660 Intake: Intake, IV Titration 800 Amount Sodium Chloride 0.9% 1, 800 000 ml @ 100 mls/hr IV . Q10H ADELITA Rx#:[id number] Oral 1860 Blood Product 0 Rc Cpda-1 Unit 0 [id number] Other: Voiding Method Toilet # Voids 2 1 # Bowel Movements 3 - Exam General: Well-developed, well-nourished NAD, Alert and Oriented x3 HEENT: Normocephalic, sclerae nonicteric Neck Supple, Trachea Midline No Cervical Lymphadenopathy Lungs: CTA Bilateral, No increased Respiratory Effort Abdomen: Nontender, nondistended, Bowel Sounds present, No palpable Organomegaly Extremities: No edema, No apparent Rash Neuro: Alert and oriented, no unilateral deficit or focal dificits noted Calm and cooperative. - Labs CBC & Chem 7: 07/20/18 08:25 07/18/18 20:25 Labs: Abnormal Lab Results - Last 24 Hours (Table) 07/18/18 07/19/18 07/19/18 Range/Units 20:25 17:17 17:17 RBC 3.23 L (4.30-5.90) m/uL Hgb 7.9 L (13.0-17.5) gm/dL Hct 25.9 L (39.0-53.0) % MCV (80.0-100.0) fL MCH 24.6 L (25.0-35.0) pg MCHC 30.6 L (31.0-37.0) g/dL RDW 16.0 H (11.5-15.5) % Retic Count 2.1 H (0.5-2.0) % Iron (65-175) ug/dL Iron Saturation (15.00-50.00) Total Protein (PEP) (6.2-8.2) g/dL Crossmatch See Detail 07/19/18 07/19/18 07/20/18 Range/Units 17:17 22:55 08:25 RBC 3.08 L 3.12 L (4.30-5.90) m/uL Hgb 7.7 L 7.6 L (13.0-17.5) gm/dL Hct 24.7 L 24.9 L (39.0-53.0) % MCV 79.9 L (80.0-100.0) fL MCH 24.3 L (25.0-35.0) pg MCHC 30.4 L (31.0-37.0) g/dL RDW 16.7 H 16.2 H (11.5-15.5) % Retic Count (0.5-2.0) % Iron 12 L (65-175) ug/dL Iron Saturation 2.75 L (15.00-50.00) Total Protein (PEP) 5.7 L (6.2-8.2) g/dL Crossmatch Assessment and Plan Plan: Assessment and Recommendations: 1. Acute Blood Bloss Anemia: Microcytic, Hypochromic with Iron Deficiency Component secondary to GI Blood Loss - Supportive Transfusions, keep greater than 7 - Iron Studies and anemia work-up in progress - Colonoscopy and EGD today per Gen Surg. Follow-uup outpatient iron.
== END 2018-07-20 17:58 | disposition home or self-care (01) | DRG 378 ==
LOC: EC 19:32 → 4SSUR 22:36
PROVIDERS: ADMIT Family Medicine; ATTEND Family Medicine
PROC: 0DJD8ZZ Inspection of Lower Intestinal Tract, Via Natural or Artificial Opening Endoscopic (ICD-10-PCS; principal; 2018-07-20 13:00)
PROC: 0DB58ZX Excision of Esophagus, Via Natural or Artificial Opening Endoscopic, Diagnostic (ICD-10-PCS; principal; 2018-07-20 13:00)
PROC: 0DB78ZX Excision of Stomach, Pylorus, Via Natural or Artificial Opening Endoscopic, Diagnostic (ICD-10-PCS; principal; 2018-07-20 13:00)
PROC: 30233N1 Transfusion of Nonautologous Red Blood Cells into Peripheral Vein, Percutaneous Approach (ICD-10-PCS; 2018-07-20 13:00)
DX: K92.2 Gastrointestinal hemorrhage, unspecified (principal); D62 Acute posthemorrhagic anemia; K20.9 Esophagitis, unspecified; K22.70 Barrett's esophagus without dysplasia; K44.9 Diaphragmatic hernia without obstruction or gangrene; K64.4 Residual hemorrhoidal skin tags; Z88.1 Allergy status to other antibiotic agents
CPT/HCPCS: 36415; 43239; 45378; 71046; 80053; 82746; 83540; 83550; 83615; 83735; 83883; 83921; 84165; 84484; 85025; 85027; 85045; 85610; 85652; 85730; 86334; 86850; 86900; 86901; 86920; 88305; 93005; 99285

== ENCOUNTER → 2020-02-26 | Outpatient (CLI) | payer OTHER | END | disposition home or self-care (01) | LOC: LABWHC1 10:12 | PROVIDERS: ATTEND Family Medicine | DX: Z20.828 Contact with and (suspected) exposure to other viral communicable diseases (principal) ==